=== PATIENT | male | born 1980 | race Caucasian/White ===

== ENCOUNTER → 2021-01-28 10:45 | Outpatient (BNVA) | payer OTHER, SELFPAY | PROVIDERS: Family Provider Family Medicine; PCP Family Medicine; Visit Provider Emergency Medicine | DX: M25.531 Pain in right wrist (principal); M25.572 Pain in left ankle and joints of left foot; W19.XXXA Unspecified fall, initial encounter | CPT/HCPCS: 73110; 73610 ==